=== PATIENT | female | born 1980 | race Caucasian/White ===

== ENCOUNTER 2016-09-23 19:30 | Outpatient (CLI) | payer SELFPAY ==
[~2016-09-23] VITALS: Ht 149.9 cm; Wt 70.9 kg
[2016-09-23 19:57] VITALS: Ht 149.9 cm; Wt 70.9 kg
[2016-09-23 19:59] VITALS: BP 114/69; PULSE 65; RESP 18
[2016-09-23] MEDS ORDERED: PREN-93 PO (20:11)
--- NOTE | 2016-09-23 20:39 | RADRPT ---
PROCEDURE: US OB biophysical profile. CLINICAL INDICATION: decreased movements, decreased FHR TECHNIQUE: Multiple sonographic images of the pelvis were obtained. The images were reviewed on a PACS workstation. COMPARISON: No prior studies are available for comparison. FINDINGS: There is a single viable intrauterine gestation. Cardiac activity is present with 144 beats per min craig. There is a vertex presentation. The placenta is posterior fundal. There is no evidence of placental abruption. There is a normal amount of amniotic fluid with an CHARMAINE = 13.9 cm. Biophysical profile: movement 2/2 tone 2/2. breathing 2/2 CHARMAINE 2/2 Total 09/30 RPTAT: AA . IMPRESSION: Normal biophysical profile. . .Wilder Roldan MD, Date Time Electronically viewed and signed by .Wilder Roldan MD, MD on 09/23/2016 20:39 .S/
--- NOTE | 2016-09-23 20:40 | RADRPT ---
PROCEDURE: US OB. CLINICAL INDICATION: Size and dates , decreased FHR TECHNIQUE: Multiple sonographic images of the pelvis and gravid uterus were obtained. The images were reviewed on a PACS workstation. COMPARISON: No prior studies are available for comparison. FINDINGS: There is a single viable intrauterine gestation. Cardiac activity is present with 150 beats per min [place]. There is a vertex presentation. The placenta is posterior fundal. There is no evidence of placental abruption. There is a normal amount of amniotic fluid with an CHARMAINE = 13.9 cm. Measurements were made in order to determine age. The results are as follows: BPD =8.4 cm HC =30 cm AC =29.2 cm FL =6.1 cm Estimated gestational age of approximately 33 weeks and 0 days based on ultrasound measurements. Clinical age: 32 weeks and 1 day. The estimated date of delivery is 11/11/16, based on ultrasound measurements. The EFW = 2048 g, 60%, based on LMP age. RPTAT: AA IMPRESSION: Single viable intrauterine gestation of approximately 33 weeks and 0 days based on ultrasound measu rements. .Wilder Roldan MD, MD Date Time Electronically viewed and signed by .Wilder Roldan MD, MD on 09/23/2016 20:40 .S/
[2016-09-23 21:05] LABS: ADD UMIC YES; UR ASCORBIC ACID NEGATIVE (NEGATIVE); UR BACTERIA FEW /HPF (NONE SEEN); UR BILIRUBIN (Dip) NEGATIVE (NEGATIVE); UR BLOOD (Dip) 2+ mg/dL (NEGATIVE); UR CLARITY CLOUDY (CLEAR); UR COLOR AMBER (YELLOW); UR GLUCOSE (Dip) NEGATIVE (NEGATIVE); UR KETONES (Dip) TRACE mg/dL (NEGATIVE); UR LEUKOCYTE ESTERASE (Dip) TRACE Leu/ul (NEGATIVE); UR MUCUS FEW /HPF (NONE SEEN); UR NITRITE (Dip) NEGATIVE (NEGATIVE); UR RBC 2 /HPF (0-5); UR SPECIFIC GRAVITY (Dip) 1.018 (1.003-1.030); UR SQUAMOUS EPITHELIAL CELL FEW /HPF (FEW); UR TOTAL PROTEIN (Dip) NEGATIVE (NEGATIVE); UR UROBILINOGEN (Dip) NEGATIVE (NEGATIVE)
--- NOTE | 2016-09-23 23:11 | PN ---
Triage Information Date/Time Reason for visit: DFHR Weeks of Gestation 32w1d /Para Diabetes: none Hypertention: none Additional information sent from clinic for audible deceleration of FHR Objective Vital Signs Date Time Temp Pulse Resp B/P Pulse Ox O2 Delivery O2 Flow Rate FiO2 09/23/16 19:59 98.3 65 18 114/69 Room Air Heart Rate: 140's Contractions: None Results/Medications Imaging Results BPP 09/30 CHARMAINE 13.9 EFW 2048gm Disposition: Discharge Assessment/Plan f/u at clinic SFEERINO DENG MD Sep 23, 2016 23:11
--- NOTE | 2016-09-23 23:12 | TRIAGE ---
OB Triage Datetime Report Generated by CPN: 09/23/2016 23:11 Datetime: 09/23/2016 22:00 Labor Evaluation Frequency: 2/HR Monitor Mode: External Duration (sec)2399: 60 Quality: Mild Pattern: Normal: <= 5 Contractions in 10 Minutes Resting Tone [place]: Relaxed Heart Rate FHR Baseline Rate: 135 Monitor Mode: External US FHR Baseline Changes: No Baseline Change Variability: Moderate 6-25 bpm Accelerations: 15X15 Decelerations: None Category: Category I Datetime: 09/23/2016 21:32 EGA: 32.1 Datetime: 09/23/2016 21:00 Labor Evaluation Frequency: 0 Monitor Mode: External Heart Rate FHR Baseline Rate: 135 Monitor Mode: External US FHR Baseline Changes: No Baseline Change Variability: Moderate 6-25 bpm Accelerations: 15X15 Decelerations: None Category: Category I Datetime: 09/23/2016 20:00 Stage of : OB Triage Time of Arrival: 09/23/2016 19:00 Arrived By: Wheelchair Arrived From: Home Chief Complaint: SENT FROM THE OFFICE FOR FHT INCREASE AND DECREASE Movement: Present Contractions: Denies/Absent Rupture of Membranes: Denies Vaginal Bleeding: None Vaginal Discharge: Denies Recent Sexual Intercouse: Denies Abdominal Trauma: Not Applicable Patient Complaints: None Time Provider Notified: 09/23/2016 21:40 Provider Notified: ISH Initial Plan: CALL M D, EFM Maternal Assessment Level of Consciousness: Fully Conscious DTR's/Clonus: DTRs 2+; No Clonus Headache: Denies Blurred Vision: No Respiratory Effort: Unlabored; Regular Rhythm; Equal Expansion Breath Sounds, Left: Clear and Equal Breath Sounds, Right: Clear and Equal Nausea/Vomiting: Denies RUQ Epigastric Pain: Denies Lower Extremities Edema: None Degree: None Upper Extremities Edema: None Degree: None Facial Edema: None Temperature Route: Oral Fall Risk Assessment History of Falling: (0) No Secondary Diagnosis: (0) No Ambulatory Aid: (0) Bedrest/Nurse Assist IV Therapy: (0) No Gait: (0) Normal/Bedrest/Immobile Mental Status: (0) Oriented to Own Ability Fall Score: 0 Fall Risk Score Definition: No Risk: No action required Monitor Mode: External Monitor Mode: External US Pain Assessment Pain Scale: 0
== END 2016-09-23 22:15 | disposition home or self-care (01) ==
LOC: OBT 19:30 → L-D 19:32 → OBT 22:15
PROVIDERS: ATTEND Obstetrics & Gynecology
DX: O76 Abnormality in fetal heart rate and rhythm complicating labor and delivery (principal); Z3A.32 32 weeks gestation of pregnancy
CPT/HCPCS: 76815; 76818; 81001; 87086; G0463